=== PATIENT | male | born 1930 | race Caucasian/White ===

== ENCOUNTER 2017-10-28 18:40 | Inpatient (IN) | payer OTHER ==
[~2017-10-28] VITALS: Ht 190.5 cm; Wt 65.8 kg
--- NOTE | ~2017-10-28 | PR ---
[place], [place] PROGRESS NOTE NAME: DEBORAH EWING UNIT #: [id number] ROOM: 311 DOCTOR: DEBORAH EPSTEIN MD BIRTHDATE: [birth year] DOS: 11/05/2017 CHIEF COMPLAINT: "I don't feel right, somebody slipped me some dope." SUMMARY OF THE VISIT: The patient was interviewed as he was resting quietly in bed. He had already asked to skip breakfast, stating that he did not feel well. Nurses note that he has been much more isolative and withdrawn and staying in his room complaining of not feeling well. The patient describes his feeling not as nausea or vomiting, but rather a lightheadedness and a sedation. He did sleep through the night and also slept on and off throughout the latter part of the day yesterday. Of note, his valproic acid level is high therapeutic at 85.7. MENTAL STATUS: He is alert and oriented with time gaps. Mood does seem to be euthymic. There is no hypomania or isra. There are no psychotic symptoms. Short term memory has gaps. PLAN: Given the fact that his valproic acid level is high normal at 85.7, I will lower his Depakote from 250 mg 3 times a day down to 250 mg twice daily. When his blood level was around 60, he was much more conversant and active. We will see if this has a positive impact on his overall demeanor. We will continue to attempt to engage in individual and adam milieu activity, returning to [facility] when psychiatrically stable. DEBORAH EPSTEIN MD CM:PNTRANS [id number] DEBORAH EPSTEIN MD 11/05/17 0933 interface
--- NOTE | ~2017-10-28 | PR ---
[place], [place] PROGRESS NOTE NAME: DEBORAH EWING UNIT #: [id number] ROOM: 311 DOCTOR: DEBORAH EPSTEIN MD BIRTHDATE: [birth year] DOS: 10/31/2017 CHIEF COMPLAINT: "That was the best breakfast I have had in a while." SUMMARY OF THE VISIT: The patient was interviewed as he was sitting in the dining area after having completed his breakfast. He engaged in brief superficial conversation. He was pleasant and bright upon approach. He reports that he used to live in the part of [facility] and is anxious to return back there if he could. I did discuss with him that I would talk to manager social responsibility and see if we can arrange for that disposition once he is ready to be discharged. For the most part, he remains pleasantly confused. He is very disoriented and disorganized, but does redirect fairly well. MENTAL STATUS: He is alert and oriented to self. It is unclear if he realizes he is in the hospital. He is certainly not oriented to time. Mood is fairly euthymic. He does seem to be very perplexed and bewildered. There is no overt hypomania or isra and there are no voiced auditory or visual hallucinations, delusions or paranoia. He does process slowly and short term memory is exceedingly poor. PLAN: His valproic acid level was therapeutic at 65.2, so I will maintain his Depakote at its current dosing. I will augment the Exelon patch with Namenda 5 mg a day and plan to titrate this upward as needed and as tolerated. We will continue to engage in individual and adam milieu activity with the plan to return back to the least restrictive environment when psychiatrically stable. DEBORAH EPSTEIN MD CM:PNTRANS 6 DEBORAH EPSTEIN MD 10/31/1715 interface
--- NOTE | ~2017-10-28 | PR ---
[place], [place] PROGRESS NOTE NAME: DEBORAH EWING UNIT #: [id number] ROOM: 311 DOCTOR: DEBORAH EPSTEIN MD BIRTHDATE: [birth year] DOS: 11/04/2017 CHIEF COMPLAINT: "They need to have a salt shaker at the table." SUMMARY OF THE VISIT: The patient was interviewed as he rested quietly in bed. Nurses did report this morning that he threw up for the second morning in a row. He is afebrile and has no other symptoms. It has not been noted whether or not he is doing this after any other males, although I did discuss this in treatment team, so that we can monitor more closely. He reports that he does not have an upset stomach now and requests that we have more salt available as the food is rather bland per his report. He is much more goal directed in his thinking and much more oriented. He is bright and pleasant and very engaging. I see no sedation, somnolence or other side effects. There is no tardive dyskinesia, extrapyramidal symptoms, etc. MENTAL STATUS: He is alert and oriented with time gaps. Mood does seem to have now strongly trending towards euthymia. Affect is much more appropriate. There are no symptoms of isra or hypomania. There are no auditory or visual hallucinations. No delusions, no paranoia. Short term memory has some gaps, otherwise he is intact. PLAN: I will renew his p.r.n. Ativan in case he requires intervention. I will recheck a valproic acid level in the a.m. to make certain that it remains in the therapeutic level and is not too high. We will plan to discharge then to the least restrictive environment when psychiatrically stable. DEBORAH EPSTEIN MD CM:PNTRANS DEBORAH EPSTEIN MD 11/04/1756 interface
--- NOTE | ~2017-10-28 | PR ---
[place], [place] PROGRESS NOTE NAME: DEBORAH EWING UNIT #: [id number] ROOM: 311 DOCTOR: DEBORAH EPSTEIN MD BIRTHDATE: [birth year] DOS: 11/01/2017 CHIEF COMPLAINT: "Well good morning." SUMMARY OF THE VISIT: The patient was interviewed in the dining area where he is sitting by himself. He had been talking to one of his dietary people who was helping him set his meal plan. He engaged readily in conversation with me, although it was very superficial. He was bright, pleasant and cooperative. He voiced no complaints. MENTAL STATUS: He is alert and oriented to self, uncertain place, certainly not time. Mood does seem to be trending towards euthymia. Affect is more appropriate. There is no isra or hypomania. There are no overt auditory or visual hallucinations. No delusions, no paranoia. Short term memory is exceedingly poor. He processes information slowly. PLAN: I will increase Exelon patch to its maximum dose, bring it from 9.5 mg a day to 13.3 mg a day. I will increase Namenda from 5 mg daily to 5 mg twice daily as I titrate upwards to its maximum dose of 10 mg b.i.d. We will engage in individual and adam milieu activity, returning to the least restrictive environment when psychiatrically stable. DEBORAH EPSTEIN MD CM:PNTRANS [id number] DEBORAH EPSTEIN MD 11/01/1726 interface
--- NOTE | ~2017-10-28 | WRIGHTHP ---
[place], [place] PATIENT HISTORY AND PHYSICAL EXAM NAME: DEBORAH EWING UNIT #: [id number] ROOM: 311 DOCTOR: DEBORAH EPSTEIN MD BIRTHDATE: [birth year] DOS: 10/29/2017 INITIAL PSYCHIATRIC EVALUATION CHIEF COMPLAINT: "I am not certain why I am here." HISTORY OF PRESENT ILLNESS: This is an 87-year-old white male who is a resident of [facility]. The patient presents to [facility] with severe confusion and verbal and physical aggression. Apparently, his behavior has been worsening over the last several weeks prior to this admission. The patient on the day of admission was in the dining room sitting at a table when he spoke to a member of the staff stating that he was going to murder him and was going to get a sharp, heavy object to kill him. The patient was found with a screwdriver in his possession at that time and it was removed. Additionally, his family intervened and searched his room and found other sharp objects in the room and removed them. He has had more recent resident to resident altercations over the last several weeks and his behavior has become somewhat unpredictable and problematic and that he often leaves his room either naked or only in his underwear. He has been cursing profanities at the staff and other residents. He has not been responding to redirection and attempts to change his medication while at the [facility] living have been unsuccessful. He is admitted now to rule out organic factors, to stabilize on medication with the plan to return to the assisted living facility or to an alternative placement when psychiatrically stable. PAST MEDICAL HISTORY: Remarkable for atrial fibrillation, anemia, benign prostatic hypertrophy, coronary artery disease, hypertension and hypothyroidism. MENTAL STATUS: The patient is alert and oriented to person, place, but approximate to time. Mood does seem to have some mood lability noted. There are no overt auditory or visual hallucinations. He does have some processing difficulty and he has some sparsity of thought. Short term memory is impaired. PLAN: I have already started him on Depakote 250 mg 3 times daily. I will plan to check a valproic acid level here within the next 24-48 hours. Routine screening examinations show him to have a low normal vitamin B12 level of 322. I will give him a vitamin B12 injection of 1000 mcg IM now and monthly and also start him on Exelon patch 4.6 mg daily with a plan to titrate this upwards to the maximum dose of 13.3 mg. We will engage in individual and adam milieu activity, returning then to the least restrictive environment when psychiatrically stable. [place], [place] PATIENT HISTORY AND PHYSICAL EXAM NAME: DEBORAH EWING UNIT #: [id number] ROOM: [facility] DOCTOR: DEBORAH EPSTEIN MD BIRTHDATE: [birth year] DEBORAH EPSTEIN MD CM:HISPHYS:PATIENT HISTORY AND PHYSICAL EXAMINATION 5 8 DEBORAH EPSTEIN MD 10/29/17927 interface
--- NOTE | ~2017-10-28 | PR ---
[place], [place] PROGRESS NOTE NAME: DEBORAH EWING UNIT #: [id number] ROOM: 311 DOCTOR: DEBORAH EPSTEIN MD BIRTHDATE: [birth year] DOS: 10/30/2017 CHIEF COMPLAINT: "I am cold, can I have a blanket please." SUMMARY OF THE VISIT: The patient was interviewed in the dining area where he was sitting waiting for his breakfast. Upon approach, he looked very perplexed and bewildered. He responded in short simple sentences, very vague. He reports feeling cold. He did report that he slept well and is ready for breakfast. He was fairly engaging and bright. There was no agitation or aggression. There was no mood lability. He is not exhibiting any medication side effects. MENTAL STATUS: He is alert and oriented to person, possibly place, although doubtful, not to time. Mood still does seem to be trending towards euthymia. Affect is more appropriate. There is no isra, hypomania or psychosis. Short term memory is exceedingly poor. PLAN: I will go ahead and increase Exelon patch from 4.6 mg topically daily to 9.5 mg daily and check a valproic acid level in the a.m. Continue to support and monitor, engage in individual and adam milieu activity, returning to the least restrictive environment when psychiatrically stable. DEBORAH EPSTEIN MD CM:PNTRANS [id number] DEBORAH EPSTEIN MD 10/30/17 0852 interface
--- NOTE | ~2017-10-28 | PR ---
[place], [place] PROGRESS NOTE NAME: DEBORAH EWING UNIT #: [id number] ROOM: 311 DOCTOR: DEBORAH EPSTEIN MD BIRTHDATE: [birth year] DOS: 11/02/2017 CHIEF COMPLAINT: "Good morning Sir, did you see a banana." SUMMARY OF THE VISIT: The patient was interviewed as he reentered the dining room. He looked at the table that was right in front of him and stated that he had put his breakfast banana down here and it was no longer there. I did report to him that perhaps another patient took it and that we would obtain him something else if he would like. He nodded in approval. Nurses report that he has been much more pleasant and much more engaging and he has even been remembering their names and making an active attempt to remember their names and engage in more appropriate conversation. He has been brighter and more pleasant. There have been no or little outbursts noted. MENTAL STATUS: He is alert and oriented to person, possibly place, but not time. Mood does seem to be trending towards euthymia. Affect is more appropriate. There is no isra or hypomania. There are no overt auditory or visual hallucinations. No delusions, no paranoia. Short term memory is poor, otherwise he is intact. PLAN: I will increase his Namenda to 10 mg in the morning and 5 mg at bedtime to try to maximize potential benefit. Engage in individual and adam milieu activity, returning to the least restrictive environment when psychiatrically stable. DEBORAH EPSTEIN MD CM:PNTRANS [phone] DEBORAH EPSTEIN MD 11/02/17 1133 interface
--- NOTE | ~2017-10-28 | PR ---
[place], [place] PROGRESS NOTE NAME: DEBORAH EWING UNIT #: [id number] ROOM: 311 DOCTOR: DEBORAH EPSTEIN MD BIRTHDATE: [birth year] DOS: 11/03/2017 CHIEF COMPLAINT: "Good morning, how are you?" SUMMARY OF THE VISIT: The patient was interviewed as he was resting quietly in bed. He had already been up and ate breakfast. He engaged in brief superficial, but pleasant conversation. He voiced no complaints. He does seem to be gradually trending towards improvement. There is no agitation or aggression. There is no sedation, somnolence or extrapyramidal symptoms, tardive dyskinesia or any other adverse events. MENTAL STATUS: He is alert and oriented with time gaps. Mood does seem to be more pleasant and affect is appropriate. There is no isra or hypomania. No psychotic symptoms are noted. He does process at times slowly and his responses can be sparse, but overall he is responding more appropriately. Short-term memory is poor. PLAN: I will go ahead and maximize out the Namenda, increasing it now to 10 mg b.i.d. continue to engage in individual and adam milieu activity with the plan then to discharge to the least restrictive environment when psychiatrically stable. DEBORAH EPSTEIN MD CM:PNTRANS 7 9 DEBORAH EPSTEIN MD 11/03/17917 interface
--- NOTE | ~2017-10-28 | DS ---
[place], [place] DISCHARGE SUMMARY NAME: DEBORAH EWING UNIT #: [id number] ROOM: 311 DOCTOR: DEBORAH EPSTEIN MD BIRTHDATE: [birth year] DOS: 11/06/2017 CHIEF COMPLAINT: "I am not certain why I am here." HISTORY OF PRESENT ILLNESS: This is an 87-year-old white male who is a resident of [facility]. The patient presented to [facility] with severe confusion with verbal and physical aggression towards others. His behavior has been worsening over the last several weeks prior to this admission. During the day of admission, the patient was sitting at a table when he spoke to a member of the staff stating that he was going to murder that staff member, he was going to get a sharp heavy object to kill him. The patient was later found with a screwdriver in his possession and had to have it forcibly removed. The patient's family was contacted and they did search the patient's residence and found multiple sharp objects hidden in his room. Most recently the patient has had several resident to resident altercations where he has struck out unprovoked towards other individuals at the assisted living [facility]. In addition, the patient has been leaving his room naked or only in his underwear. When redirected, he has been cursing at staff and yelling profanities at staff and other residents. Attempts to redirect or change his medication have been unsuccessful and the patient has been increasingly more out of control. The patient is admitted now to rule out any organic factors, to stabilize on medication, ultimately to return to the least restrictive environment when psychiatrically stable. PAST MEDICAL HISTORY: Remarkable for atrial fibrillation, anemia, benign prostatic hypertrophy, coronary artery disease, hypertension and hypothyroidism. SUMMARY OF HOSPITAL COURSE: The patient was admitted to the unit where his Lexapro was discontinued in lieu of Depakote 250 mg 3 times daily. Depakote was being utilized to decrease impulsivity and mood lability. Additionally, upon admission, the patient's vitamin B12 level was low normal at 322, so he was given a B12 injection of 1000 mcg IM at that time and then to be given monthly. He was started on Exelon patch 4.6 mg daily as well as Namenda. The Exelon patch was gradually increased to its maximum dose of 13.3 mg daily, while the Namenda was increased to its maximum dose of 10 mg b.i.d. A check of the patient's valproic acid level during his stay showed him to have an initial level of 65.2, that was subsequently rechecked several days later at 85.7. While with the blood level of 85.7, the patient was somewhat somnolent, so the dose of the Depakote was lowered from 250 mg 3 times daily to 250 mg twice daily with a significant change in his mentation. The patient was much more alert. He was pleasant and cooperative. During the latter part of his stay, the patient did not exhibit any mood lability. There was no agitation or aggression. There was no verbal or physical aggression whatsoever. With the lower dose of the Depakote, there was no somnolence, sedation or any other side effects noted. The patient had improved sufficiently to return back to [facility] where I will follow him upon his return. MENTAL STATUS AT DISCHARGE: The patient is alert and oriented to person, possibly place, but not time. Mood was euthymic. Affect appropriate. There was no symptom suggestive of depression, hypomania, isra or psychosis. No [place], [place] DISCHARGE SUMMARY NAME: DEBORAH EWING UNIT #: [id number] ROOM: 311 DOCTOR: DEBORAH EPSTEIN MD BIRTHDATE: [birth year] overt auditory or visual hallucinations were noted. Short term memory remained poor. Otherwise, he was intact. FINAL DIAGNOSES: Intermittent explosive disorder and Alzheimer's dementia. PLAN: All of the patient's prescriptions have been printed and will be sent with him. He will return to [facility]. I will follow him upon his return to that facility. DEBORAH EPSTEIN MD CM:DISCHRIK [id number] DEBORAH EPSTEIN MD 11/06/17 1042 interface
[2017-10-28] MEDS ORDERED: LEXAPRO10 MG PO (18:45)
[2017-10-28 21:22] VITALS: BP 146/67
[2017-10-28] MEDS ORDERED: AMLODIPINE BESYL5 MG PO (22:01)
[2017-10-28] MEDS ORDERED: ASPIRIN ADULT L81 M2 PO (22:01)
[2017-10-28] MEDS ORDERED: DOCUSATE SOD100 MG PO (22:02)
[2017-10-28] MEDS ORDERED: FUROSEMIDE20 M1 PO (22:03)
[2017-10-28] MEDS ORDERED: ESCITALOPRAM OX10 MG PO (22:03)
[2017-10-28] MEDS ORDERED: MIRALAX POWDER255 G1 PO (22:04)
[2017-10-28] MEDS ORDERED: LEVOTHYROXINE50 MCG PO (22:04)
[2017-10-28] MEDS ORDERED: PANTOPRAZOLE SO40 MG PO (22:05)
[2017-10-28] MEDS ORDERED: PRAVASTATIN SOD40 MG PO (22:06)
[2017-10-28] MEDS ORDERED: CLOPIDOGREL75 MG PO (22:06)
[2017-10-28] MEDS ORDERED: WARFARIN SODIUM2 MG PO (22:07)
[2017-10-28] MEDS ORDERED: IMDUR SA30 MG PO (22:08)
[2017-10-28] MEDS ORDERED: Lopressor25 MG PO (22:09)
[2017-10-28] MEDS ORDERED: SODIUM CHLORIDE1 GM PO (22:11)
[2017-10-28 22:28] VITALS: BP 146/67
[2017-10-29 07:31] VITALS: BP 150/69
[2017-10-29 07:37] LABS: BILIRUBIN NEGATIVE (NEGATIVE); BLOOD NEGATIVE (NEGATIVE); CLARITY CLEAR (CLEAR); COLOR YELLOW (YELLOW); GLUCOSE NEGATIVE (NEGATIVE); KETONE NEGATIVE (NEGATIVE); LEUKO ESTERASE NEGATIVE (NEGATIVE); NITRITE NEGATIVE (NEGATIVE); PH 6.5 (5.0-9.0); SPECIFIC GRAVITY <= 1.005 (1.005-1.030); UROBILINOGEN 0.2 E.U./dl (0.2-1.0)
[2017-10-29 07:53] LABS: BASO # 0.1 10*3/uL (0.0-0.1); BASO % 0.9 % (0.0-1.0); EOS # 0.2 10*3/uL (0.0-0.4); EOS % 2.7 % (1.0-4.0); HEMATOCRIT 38.1 % (42.0-52.0); HEMOGLOBIN 12.7 g/dl (14.0-18.0); LYMPH # 2.4 10*3/uL (1.3-4.4); LYMPH % 35.8 % (27.0-41.0); MEAN CELL VOLUME 94.1 fl (80.0-94.0); MEAN CORPUSCULAR HGB 31.4 pg (27.0-31.0); MEAN CORPUSCULAR HGB CONC 33.3 g/dl (33.0-37.0); MEAN PLATELET VOLUME 9.3 fl (9.6-12.3); MONO # 0.6 10*3/uL (0.1-1.0); NEUT # 3.4 10*3/uL (2.3-7.9); NEUT % 51.3 % (47.0-73.0); PLATELET COUNT AUTOMATED 187 10*3/uL (130-400); RED BLOOD COUNT 4.05 10*6/uL (4.50-5.90); RED CELL DISTRI WIDTH 13.1 % (0-14.5); WHITE BLOOD COUNT 6.7 10*3/uL (4.8-10.8)
[2017-10-29 08:03] LABS: INTERNATIONAL NORM RATIO 2.2 (2.0-3.5)
[2017-10-29 08:07] LABS: ALBUMIN 3.7 gm/dl (3.1-4.5); ALKALINE PHOSPHATASE 62 U/L (45-117); BUN 16 mg/dl (7-24); CHLORIDE 101 mmol/L (98-107); CHOLESTEROL 161 mg/dL (<200); CREATININE 1.21 mg/dL (0.70-1.30); HDL CHOLESTEROL 77 mg/dl (40-60); LDL CHOLESTEROL 67 mg/dL (9-159); POTASSIUM 4.5 mmol/L (3.5-5.1); SGOT/AST 14 IU/L (3-35); SGPT/ALT 18 U/L (12-78); SODIUM 139 mmol/L (136-145); TOTAL PROTEIN 7.4 gm/dL (6.4-8.2); TRIGLYCERIDES 84 mg/dl (<150); VLDL CHOLESTEROL 17 mg/dL (6-40)
[2017-10-29 08:56] LABS: VITAMIN D, 25-HYDROXY 46.9 ng/mL (30-100)
[2017-10-29 20:00] VITALS: BP 121/61
[2017-10-30 07:26] VITALS: BP 140/67
[2017-10-30 19:46] VITALS: BP 137/81
[2017-10-31 07:38] VITALS: BP 147/71
[2017-10-31 20:00] VITALS: BP 145/69
[2017-11-01 07:54] VITALS: BP 150/73
[2017-11-01 19:48] VITALS: BP 147/66
[2017-11-02 06:47] LABS: INTERNATIONAL NORM RATIO 3.4 (2.0-3.5)
[2017-11-02 07:47] VITALS: BP 129/59
[2017-11-02 20:00] VITALS: BP 138/69
[2017-11-03 07:40] VITALS: BP 147/68
[2017-11-03 14:25] LABS: INTERNATIONAL NORM RATIO 2.3 (2.0-3.5)
[2017-11-03 19:51] VITALS: BP 140/58
[2017-11-03 20:24] VITALS: BP 128/68
[2017-11-04 07:01] LABS: INTERNATIONAL NORM RATIO 2.5 (2.0-3.5)
[2017-11-04 08:00] VITALS: BP 125/66
[2017-11-04 19:46] VITALS: BP 120/60
[2017-11-05 07:53] VITALS: BP 125/63
[2017-11-05 08:17] LABS: BUN 27 mg/dl (7-24); CHLORIDE 99 mmol/L (98-107); CREATININE 1.19 mg/dL (0.70-1.30); POTASSIUM 3.9 mmol/L (3.5-5.1); SODIUM 137 mmol/L (136-145)
[2017-11-05 20:43] VITALS: BP 115/56
[2017-11-05 21:03] VITALS: BP 130/88
[2017-11-06 08:09] VITALS: BP 137/70
[2017-11-06] MEDS ORDERED: MEMANTINE HCL10 MG PO (10:19)
[2017-11-06] MEDS ORDERED: DIVALPROEX SOD250 MG PO (10:19)
[2017-11-06] MEDS ORDERED: EXELON13.3 MG/21 T (10:19)
== END 2017-11-06 19:00 | disposition home or self-care (01) | DRG 883 ==
LOC: 3N 18:40
PROVIDERS: Family Medicine Adult Medicine; Internal Medicine; Psychiatry & Neurology Psychiatry; Student in an Organized Health Care Education/Training Program
DX: F63.81 Intermittent explosive disorder (principal); I48.0 Paroxysmal atrial fibrillation; G30.9 Alzheimer's disease, unspecified; F02.80 Dementia in other diseases classified elsewhere, unspecified severity, without behavioral disturbance, psychotic disturbance, mood disturbance, and anxiety; F23 Brief psychotic disorder; F11.23 Opioid dependence with withdrawal; E03.9 Hypothyroidism, unspecified; I25.10 Atherosclerotic heart disease of native coronary artery without angina pectoris; N40.0 Benign prostatic hyperplasia without lower urinary tract symptoms; I10 Essential (primary) hypertension; F41.9 Anxiety disorder, unspecified; R00.1 Bradycardia, unspecified; F32.9 Major depressive disorder, single episode, unspecified; B19.20 Unspecified viral hepatitis C without hepatic coma; Z79.01 Long term (current) use of anticoagulants; Z79.899 Other long term (current) drug therapy; Z66 Do not resuscitate; Z51.5 Encounter for palliative care